=== PATIENT | male | born 1945 | race Caucasian/White ===

== ENCOUNTER 2022-10-24 22:43 | Inpatient (IN) | payer MEDICARE, OTHER, SELFPAY ==
--- NOTE | ~2022-10-24 | XR_ITS ---
EXAMINATION: XR abdomen NG/feed tube insert DATE: 10/25/2022 12:10 INDICATION: Orogastric tube placement. TECHNIQUE: A supine view of the abdomen was obtained. COMPARISON: None. FINDINGS: The lower abdomen is excluded. The nasogastric tube tip is in the stomach with proximal corrina e port in the distal esophagus. The endotracheal tube tip is 3.0 cm above the chidi. IMPRESSION: 1. Nasogastric tube tip in the stomach with proximal side port in the distal esophagus. Advancement 8 cm is recommended. Reviewed, dictated and finalized at location A. IMPRESSION: 1. Nasogastric tube tip in the stomach with proximal side port in the distal es ophagus. Advancement 8 cm is recommended.
--- NOTE | ~2022-10-24 | XR_ITS ---
Portable chest x-ray Comparison: 10/24/2022 Clinical History: Shortness of breath, fever Findings: There is probable discoid left basilar atelectasis. Right lung clear. Cardiomediastinal s ilhouette is stable. Left shoulder arthroplasty noted. Impression: Probable discoid left basilar atelectasis, versus possibly pneumonia. Correlate clinically. Reviewed, dictated and finalized at [facility]. Impression: Probable discoid left basilar atelectasis, versus possibly pneumonia. Correlate clinically.
--- NOTE | ~2022-10-24 | XR_ITS ---
EXAMINATION: XR chest port-a-cath/central, XR abdomen NG/feed tube rechec DATE: 10/25/2022 13:59 INDICATION: Central line placement and nasogastric tube placement. TECHNIQUE: 1. Frontal view of the chest was obtained. 2. Portable supine AP view of the abdomen was obtained. COMPARISON: CT dated 10/25/2022 FINDINGS: CHEST: Right internal jugular central venous catheter with distal tip at the superior cavoatrial junction. E ndotracheal tube tip 4.2 cm above the chidi. Increased opacities at the left lower lung zone with mo re dense retrocardiac consolidation. Right lung is clear. No pneumothorax or evident right pleural ef fusion. The cardiomediastinal silhouette is within normal limits for AP technique. Severe right gleno humeral osteoarthritis. Left total shoulder arthroplasty. ABDOMEN: Nasogastric tube tip in proximal side port in the body of the stomach. Several gas-filled loops of isela wel in the upper abdomen. Which could represent small bowel consistent with either obstruction or ile us. Some residual excreted contrast in the bilateral renal collecting systems from the prior contrast enhanced CT . IMPRESSION: 1. Lines and tubes in expected positions. 2. Opacities in the left lower lung zone with retrocardiac consolidation consistent with small left p leural effusion and associated atelectasis and/or pneumonia. 3. Other dilated gas-filled loops of small bowel in the left upper quadrant which could be related to bowel obstruction or ileus. Reviewed, dictated and finalized at location B. IMPRESSION: 1. Lines and tubes in expected positions. 2. Opacities in the left lower lung zone with retrocardiac consolidation consis tent with small left pleural effusion and associated atelectasis and/or pneumon ia. 3. Other dilated gas-filled loops of small bowel in the left upper quadrant whi ch could be related to bowel obstruction or ileus.
--- NOTE | ~2022-10-24 | CT_ITS ---
Clinical Indication: Tachycardia, shortness of breath CT Scan of the Chest with Contrast: Technique: Contiguous sections were acquired throughout the chest after intravenous administration of 100 cc of Omnipaque 350. Dose reduction technique was used on this scan by utilizing automated expos ure control and iterative reconstruction technique. The dose-length product (DLP) was 311.03 mGy-cm. Findings: There is no evidence of any significant mediastinal, hilar or axillary lymphadenopathy. There is no l arge central pulmonary embolus. Respiratory motion artifact limits evaluation for smaller, more perip heral pulmonary emboli. There is no evidence of aortic dissection or aneurysm. There are atherosclero tic calcifications of the aorta and coronary vessels. No pericardial effusion. Small bilateral pleural effusions are present, left greater than right. There is left basilar atelect atic change. Images through the upper abdomen reveal no abnormalities. Impression: No large central pulmonary embolus. Respiratory motion artifact limits evaluation for smaller, more p eripheral pulmonary emboli. Small bilateral pleural effusions, left greater than right, with left basilar atelectasis. Reviewed, dictated and finalized at [facility]. Impression: No large central pulmonary embolus. Respiratory motion artifact limits evaluati on for smaller, more peripheral pulmonary emboli. Small bilateral pleural effusions, left greater than right, with left basilar a telectasis.
--- NOTE | ~2022-10-24 | XR_ITS ---
EXAMINATION: XR chest ET placement DATE: 10/25/2022 12:10 INDICATION: Intubation. TECHNIQUE: A single frontal view of the chest was obtained. COMPARISON: Chest single view 10/25/2022, chest CT 10/25/2022 FINDINGS: There is a small left pleural effusion. There are airspace opacities at left lung base. No pneumothorax. The heart size is normal. The endotracheal tube tip is 3.3 cm above the chidi. The radha ogastric tube tip is in the stomach with proximal side port in the distal esophagus. There is a total left shoulder arthroplasty. IMPRESSION: 1. Small left pleural effusion. 2. Airspace opacities at left lung base, consistent with atelectasis versus pneumonia. 3. Nasogastric tube tip in the stomach with proximal side port in the distal esophagus. Advancement 8 cm is recommended. Reviewed, dictated and finalized at location A. IMPRESSION: 1. Small left pleural effusion. 2. Airspace opacities at left lung base, consistent with atelectasis versus pne umonia. 3. Nasogastric tube tip in the stomach with proximal side port in the distal es ophagus. Advancement 8 cm is recommended.
--- NOTE | ~2022-10-24 | CT_ITS ---
Clinical Indication: Sepsis CT Scan of the Chest, Abdomen, and Pelvis with Contrast: Technique: Contiguous sections were acquired throughout the chest, abdomen, and pelvis without IV con trast administration. Dose reduction technique was used on this scan by utilizing automated exposure control and iterative reconstruction technique. The dose-length product (DLP) was 678.52 mGy-cm. COMPARISON: 10/25/2022 at 606 exam Findings: Endotracheal tube and NG tube are in place. There is no evidence of any significant mediastinal, hilar or axillary lymphadenopathy. Atherosclerot ic calcifications of the aorta and coronary vessels are present. No pericardial effusion. Small left pleural effusion and minimal right pleural effusion is present. There is mild bibasilar at electatic change. The liver, spleen, pancreas, gallbladder, adrenals and kidneys are within normal li mits. There are atherosclerotic calcifications of the aorta. No lymphadenopathy. No bowel obstruction or bowel wall thickening. There is no evidence to suggest acute appendicitis. Urinary bladder is collapsed around a Lino catheter. No pelvic mass identified. No ascites. Impression: Small left pleural effusion and minimal right pleural effusion, mild bibasilar atelectatic change. No other significant findings. Reviewed, dictated and finalized at [facility]. Impression: Small left pleural effusion and minimal right pleural effusion, mild bibasilar atelectatic change. No other significant findings.
--- NOTE | ~2022-10-24 | CT_ITS ---
EXAMINATION: CTA brain carotid DATE: 10/25/2022 13:13 INDICATION: Slurred speech. Unresponsive. TECHNIQUE: Computed tomographic angiography (CTA) of the head was performed without and with 100 mL O mnipaque-350 intravenous contrast. CTA of the neck was performed with intravenous contrast. Automated exposure control and iterative reconstruction technique were employed. The dose-length product was 1 299.24 mGy-cm. Maximum intensity projection and volume rendered 3D-reconstructions were created by marisa mendez technologist on a separate workstation. COMPARISON: None. FINDINGS: HEAD CTA: There is no intracranial hemorrhage, acute infarction, or abnormal intracranial mass lesion . There are scattered areas of low attenuation in the cerebral white matter, which is within normal l imits for the patient's age. The ventricles are normal in size. The paranasal sinuses are clear. The orbits are normal. The mastoid air cells are normal. The vertebral arteries are codominant. There is no significant stenosis of basilar artery or the posterior cerebral arteries. There is no significant stenosis of the intracranial internal carotid arteries or anterior or middle cerebral arteries. The anterior communicating artery is normal. The posterior communicating arteries are normal. There is no aneurysm. NECK CTA: There are small pleural effusions. There are no pathologically enlarged lymph nodes. There is an endotracheal tube with tip in expected position. Partially visualized is an orogastric tube. Th ere is no significant stenosis of the vertebral arteries. There is plaque in the proximal internal ca rotid arteries. There is 0% stenosis of the proximal right internal carotid artery relative to normal distal artery lumen diameter (NASCET criteria). There is 0% stenosis of the proximal left internal c arotid artery relative to normal distal artery lumen diameter. There is severe cervical spondylosis. IMPRESSION: 1. Normal aging brain. 2. No aneurysm or significant intracranial arterial stenosis. 3. 0% stenosis of the proximal internal carotid arteries relative to normal distal artery lumen diame ters (NASCET criteria). 4. Small pleural effusions. Reviewed, dictated and finalized at location A. IMPRESSION: 1. Normal aging brain. 2. No aneurysm or significant intracranial arterial stenosis. 3. 0% stenosis of the proximal internal carotid arteries relative to normal dis sigifredo artery lumen diameters (NASCET criteria). 4. Small pleural effusions.
--- NOTE | ~2022-10-24 | XR_ITS ---
Portable chest x-ray Comparison: None Clinical History: Chest pain Findings: Linear left basilar scarring or atelectasis noted. Lungs are otherwise clear, without focal consolidation or pleural effusion. Cardiomediastinal silhouette is unremarkable. Degenerative matos e of the right shoulder noted. Left shoulder arthroplasty present. Impression: Linear left basilar scarring or atelectasis, otherwise clear lungs. Reviewed, dictated and finalized at location . Impression: Linear left basilar scarring or atelectasis, otherwise clear lungs.
[2022-10-24 22:43] VITALS: BP 101/56; PULSE 93; RESP 25; TEMP 36.4; O2SAT 98
--- NOTE | 2022-10-24 22:43 | ECG_ITS ---
Measurements Intervals [place] Rate: 106 P: [place]: 0 QRS: 72 QRSD: 117 T: 42 QT: 324 QTc: 432 Interpretive Statements SINUS TACHYCARDIA FREQUENT ATRIAL PREMATURE COMPLEXES INTRAVENTRICULAR CONDUCTION DELAY DELAYED PRECORDIAL R/S TRANSITION ST ELEVATION IN ANTERIOR LEADS CONSISTENT WITH INJURY, PERICARDITIS, OR EARLY REPOLARIZATION ABNORMAL ECG NO PREVIOUS ECG AVAILABLE FOR COMPARISON Electronically Signed On 10-25-2022 6:39:33 CDT by Mike Sy D.O.
--- NOTE | 2022-10-24 23:11 | ED.WEAKNESS ---
HPI - Weakness General Chief complaint: Weakness <Mariam Basilio MD - Last Filed: 10/26/22 13:05> Stated complaint: gen weak <Mariam Basilio MD - Last Filed: 10/26/22 13:05> Time Seen by Provider: 10/24/22 22:45 <Mariam Basilio MD - Last Filed: 10/26/22 13:05> History of Present Illness HPI Narrative: Patient is a 77-year-old male with a history of CAD status post stent, hypertension, hyperlipidemia presenting with body aches. Patient states that he had a heart attack last month and had a stent placed at [facility]. States that at that time he was started on new medications including atorvastatin, Jardiance, metoprolol, Brilinta. States that he had previously only been taking lisinopril. States that over the last few weeks he has been having worsening body aches. States that all of his muscles hurt especially in his thighs. States that he is also been feeling generally weak. States that he has been feeling a bit short of breath over the last few days. States that he had a brief episode of left-sided chest pain several days ago that has not recurred. States that he has been wearing a heart monitor for the last several weeks to evaluate for arrhythmias. He denies any lightheadedness, headaches, numbness or weakness, fevers, cough, abdominal pain, nausea or vomiting, diarrhea, dysuria, leg swelling. <Mariam Basilio MD - Last Filed: 10/26/22 13:05> Related Data Home medications: Home Medications Medication Instructions Recorded Confirmed aspirin 81 mg chewable tablet 10/24/22 atorvastatin 40 mg tablet mg 10/24/22 empagliflozin 10 mg tablet mg 10/24/22 (Jardiance) lisinopril 5 mg tablet mg 10/24/22 metoprolol tartrate 25 mg tablet mg 10/24/22 ticagrelor 90 mg tablet (Brilinta) mg 10/24/22 carboxymethylcellulose sodium 1 % 2 drp EACH EYE BID 10/25/22 10/25/22 eye liquid gel drops <Mariam Basilio MD - Last Filed: 10/26/22 13:05> Allergies/Adverse reactions: Allergies Allergy/AdvReac Type Severity Reaction Status Date / Time Penicillins Allergy Mild Unknown Verified 10/25/22 06:43 <Mariam Basilio MD - Last Filed: 10/26/22 13:05> Review of Systems Review of Systems: All systems reviewed & are unremarkable except as noted in HPI and below <Mariam Basilio MD - Last Filed: 10/26/22 13:05> PMFSH Past Medical History Medical History: Medical History Coronary artery disease Dyslipidemia <Mariam Basilio MD - Last Filed: 10/26/22 13:05> Surgical History Surgical History: Surgical History History of heart artery stent (09/14/22) History of left shoulder replacement <Mariam Basilio MD - Last Filed: 10/26/22 13:05> Family History Family History: Family History Other No significant family history <Mariam Basilio MD - Last Filed: 10/26/22 13:05> Social History Social History: Social History Social History: Code status: Full code Power of senior attorney for healthcare: Smoking packs per day: 1 Smoking cigarettes per day: 20.0 Years smoked: 35 Smoking pack-years: 35.00 Smoking status: Former smoker Alcohol intake: current Drinks per week: 14 Alcohol use details: 2 drinks daily Substance use: never Additional living arrangements comments: He lives with his of 30 years. They have no children. 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 EYES: P
[2022-10-24 23:17] LABS: Basophils Percent Auto 0.7 % (0.2-1.2); Hematocrit 31.7 % (42.0-52.0); Hemoglobin 10.8 g/dL (14.0-18.0); Immature Granulocyte Absolute 0.01 K/mm3 (0.00-0.031); Immature Granulocyte Percent A 0.2 % (0-0.5); Lymphocytes Absolute Auto 0.29 K/mm3 (0.9-3.2); Lymphocytes Percent Auto 6.5 % (18.3-44.2); Mean Corpuscular HGB Conc 34.1 g/dl (32-36); Mean Corpuscular Hemoglobin 32.4 pg (26-34); Mean Corpuscular Volume 95.2 fl (80-100); Mean Platelet Volume 10.2 fl (7.4-10.4); Monocytes Absolute Auto 0.6 K/mm3 (0.1-0.6); Monocytes Percent Auto 12.4 % (2.6-8.5); Neutrophils Absolute Auto 3.6 K/mm3 (1.3-6.7); Neutrophils Percent Auto 80.2 % (45.5-73.1); Platelet Count Result 166 k/mm3 (150-375); Red Blood Count 3.33 M/mm3 (4.6-6.20); Red Cell Distribution Width 14.6 % (11.5-14.5); White Blood Count 4.5 K/mm3 (4.5-10.0)
[2022-10-24] MEDS: SODIUM CHLORIDE 0.9% IV 1,000 ML 999 ML IV CONT (23:20)
[2022-10-24 23:25] LABS: Creatine Kinase 244 U/L (55-170); Magnesium 2.3 mg/dL (1.6-2.3)
[2022-10-24 23:26] LABS: Lactic Acid Reflex 5.5 mmol/L (0.7-2.0)
[2022-10-24 23:27] LABS: Alanine Aminotransferase 36 U/L (6-50); Albumin Level 2.7 g/dL (3.5-5.1); Alkaline Phosphatase 49 U/L (38-126); Anion Gap 11 mmol/L (8-16); Aspartate Amino Transferase 40 U/L (17-59); Bilirubin,Total 0.7 mg/dL (0.2-1.3); Blood Urea Nitrogen 44 mg/dL (9-20); Calcium 7.6 mg/dL (8.4-10.2); Carbon Dioxide 17 mmol/L (22-30); Chloride 92 mmol/L (98-107); Estimated CRCL calculation 41 ml/min; Estimated Glomerular Filt Rate 54; Glucose 108 mg/dL (65-110); Potassium 4.1 mmol/L (3.4-5.0); Sodium 120 mmol/L (137-145)
[2022-10-24 23:29] LABS: Large Platelets Present; Platelet Estimate Adequate (Adequate)
[2022-10-24 23:30] LABS: Acanthocytes 2+ (NORMAL); Anisocytosis 1+ (NORMAL); Schistocytes None Seen (NORMAL)
[2022-10-24 23:38] LABS: Appearance Urine Cloudy (Clear); Bacteria Urine None Seen /hpf; Bilirubin Urine Negative (Negative); Blood Urine 1+ (Negative); Color Urine Yellow (Yellow); Glucose Urine UA 3+ mg/dL (Negative); Ketones Urine Negative (Negative); Leukocyte Esterase Ur Negative LEU/UL (Negative); Need Manual Microscopic Reviewed; Nitrate Urine Negative (Negative); Protein Urine Negative (Negative); Specific Grav Ur 1.019 (1.001-1.035); Squamous Epithelial Cell Urine Few /hpf (Few); Urobilinogen Urine 0.2 mg/dL (<2.0); WBC Urine 0-5 /hpf; pH Urine 5.5 (5.0-9.0)
[2022-10-24 23:40] LABS: NT Pro B Type Natriuretic Pept 13700 pg/mL (19.9-100); Troponin I 0.064 ng/mL (0.000-0.034)
[2022-10-24 23:40] LABS: Add Urine Microscopic? YES
[2022-10-24 23:41] LABS: Creatinine Urine 55.9 mg/dL
[2022-10-24 23:43] LABS: Sodium Urine Random < 5 meq/L
[2022-10-24 23:51] LABS: INR 1.3; Prothrombin Time 17.1 Seconds (11.1-14.7)
[2022-10-25] VITALS (63 sets, daily range): BP systolic 61–138; BP diastolic 42–97; PULSE 68–180; RESP 15–42; TEMP 36.9–38.4; O2SAT 73–100
--- NOTE | 2022-10-25 | ECHO_ITS ---
Patient Info Name: Delvin Smith Age: 77 years : 1945 Gender: Male Ht: 68 in Wt: 148 lbs BSA: 1.80 m2 HR: 140 bpm BP: 70 / 43 mmHg Heart Rhythm: Tachycardia, Atrial Fibrillation Technical Quality: Fair Exam Date: 10/25/2022 2:44 PM Exam Location: [facility] Pulmonary Exam Room: ICU4 Patient Status: Outpatient Admit Date: 10/25/2022 Staff Ordering Physician: Lopez Pierce MD Rheumatologist: Tamika Chinchilla RDCS Attending Provider: Cari Guillaume DO Exam Type: CA echo doppler color flow Study Info Indications - SHOCK AFIB CAD HX/O TX S/P STENT Complete two-dimensional, color flow and Doppler transthoracic echocardiogram is performed. Summary 1. Technically difficult study with limited views. Accurate assessment of LV systolic function limited due to rapid tachyarrhythmia. 2. Left ventricular chamber dimension is normal. 3. Left ventricular systolic function is moderately reduced, estimated at 40-45%. 4. There is mild mitral valve regurgitation. 5. There is mild to moderate tricuspid valve regurgitation. 6. Mild pulmonary hypertension, estimated pulmonary arterial systolic pressure is 41 mmHg. Left Ventricle Technically difficult study with limited views. Accurate assessment of LV systolic function limited due to rapid tachyarrhythmia. Left ventricular chamber dimension is normal. Left ventricular systolic function is moderately reduced, estimated at 40-45%. There is mildly increased left ventricular wall thickness. The left ventricular diastolic function is indeterminate. Right Ventricle Right ventricular chamber dimension is normal. Right ventricular systolic function is normal. Left Atria Left atrial chamber dimension is normal. Right Atria Right atrial chamber dimension is mildly enlarged. Aortic Valve The aortic valve is trileaflet. There is mild aortic valve sclerosis. There is no aortic valve stenosis. There is no aortic valve regurgitation. Pulmonic Valve The pulmonic valve is not well visualized. Mitral Valve The mitral valve has thickened leaflets. There is mild mitral valve regurgitation. The mitral valve annulus is severely calcified. Tricuspid Valve The tricuspid valve leaflets are normal. There is mild to moderate tricuspid valve regurgitation. Mild pulmonary hypertension, estimated pulmonary arterial systolic pressure is 41 mmHg. Pericardium/Pleural The pericardium appears normal. There is small pericardial effusion. Left pleural effusion. Inferior Vena Cava Normal inferior vena cava with >50% collapse upon inspiration consistent with normal right atrial pressure, 5 mmHg. Aorta The aortic root size at the sinus of Valsalva is normal. There is mild aortic atherosclerosis. Left Ventricular Outflow Tract Name Value Normal LVOT 2D LVOT Diameter 2.1 cm LVOT Doppler LVOT Peak Gradient 5 mmHg LVOT Mean Gradient 3 mmHg LVOT VTI 15 cm LVOT VTI/AV VTI Ratio 0.8 LVOT Stroke Volume 54 ml LVOT CO 18.2 l/min LVOT CI 10.2 l/min/m2 Pulmonic Va
[2022-10-25] MEDS: LACTATED RINGERS 1,000 ML 999 ML IV CONT (00:15)
[2022-10-25 01:04] LABS: Influenza A QL RT-PCR Negative (Negative); Influenza B QL RT-PCR Negative (Negative); SARS-CoV-2 RNA PCR Negative (Negative)
[2022-10-25] MEDS: LACTATED RINGERS 1,000 ML 125 ML IV CONT (01:55)
[2022-10-25 02:10] LABS: Reflex Lactic Acid Yes or No Add Lactic
[2022-10-25 02:36] LABS: Troponin I 0.073 ng/mL (0.000-0.034)
[2022-10-25 03:14] LABS: Lactic Acid 4.4 mmol/L (0.7-2.0)
--- NOTE | 2022-10-25 04:18 | ECG_ITS ---
Measurements Intervals [place] Rate: 122 P: 42 [place]: 153 QRS: -34 QRSD: 114 T: 53 QT: 297 QTc: 425 Interpretive Statements SINUS TACHYCARDIA FREQUENT ATRIAL PREMATURE COMPLEXES INTRAVENTRICULAR CONDUCTION DELAY DELAYED PRECORDIAL R/S TRANSITION LOW QRS VOLTAGE IN LIMB LEADS ST ELEVATION IN ANTERIOR LEADS CONSISTENT WITH INJURY, PERICARDITIS, OR EARLY REPOLARIZATION ABNORMAL ECG COMPARED TO ECG 10/24/2022 22:49:35 NO SIGNIFICANT CHANGES Electronically Signed On 10-25-2022 6:58:05 CDT by Mike Sy D.O.
--- NOTE | 2022-10-25 04:22 | PM.IMHP ---
H&P: HPI History of Present Illness Date/Time: 10/25/22 04:22 Chief Complaint: Generalized weakness Narrative: 77-year-old male with a past medical history of recent [place] questionable cardiac arrest with cardiac stent placement the who presented to the ER with generalized weakness for 1 month. The the patient reports that the as symptoms are started with aching in his thighs calves and low back. As time progressed he also developed aching in is neck and shoulders. He has generalized weakness. He over the last week or so is also developed some he decreased appetite and occasional nausea. He reports that he went from working out 40 minutes a day 4 days a week to the right now not being able to get out of bed without maximum effort. He reports that he has some mildly more short of breath when he gets up and moves around but he states that it is because he has to put so much effort into movies his extremities. He has noticed some darker urine. He denies any dysuria. He denies any vomiting. He denies any cough or congestion. On exam patient is mildly tachypneic. He reports that he has felt a little bit more short of breath since arriving to the ER. He stops multiple times during conversation to clear his nose. He reports he has chronic nasal congestion. He denies any sore throat. He denies any recent ill contacts. He has not had any lower extremity swelling or abdominal swelling. He has been having normal bowel movements. In the ER and they did straight cath the patient after straight catheterization the patient did have bleeding from his meatus. He reports that he did have some pain in his left back and scapular area couple of days ago but he has so seated with laying in bed too much. He was in aching type pain it did not radiate to his shoulder. He reports that he never had any chest pain when he had his cardiac event. He stated that his cardiac event happened when he was working out at the recreational center and lifting weights in the next thing he knew he was at [facility]. He states that a bystander had witnessed him collapse and had administered CPR. He does not know if he was intubated or what other interventions he had during his cardiac event. He states that he only had 1 stent placed. His heart attack happen on the 11 of September anion stent placed on the . Review of Systems Review of Systems: 12 systems were reviewed with pertinent positives and negatives per HPI. Except as documented in the HPI, all other systems were reviewed and are negative. [facility] Past Medical History Medical History (Updated 10/25/22 @ 06:05 by Cari Guillaume DO) Coronary artery disease Dyslipidemia Surgical History Surgical History (Updated 10/25/22 @ 05:50 by Cari Guillaume DO) History of heart artery stent (09/14/22) History of left shoulder replacement Family History Family History (Updated 10/25/22 @ 05:54 by Cari Guillaume DO) Other No significant family history Social History Social History (Updated 10/25/22 @ 05:53 by Cari Guillaume DO) Social History: Code status: Full code Power of commonwealth attorney for healthcare: Smoking packs per day: 1 Smoking cigarettes per day: 20.0 Years smoked: 35 Smoking pack-years: 35.00 Smoking status: Former smoker Alcohol intake: current Drinks per week: 14 Alcohol use details: 2 drinks daily Substance use: never Additional living arrangements comments: He lives with his of 30 years. They have no children. 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
[2022-10-25] MEDS: METOPROLOL TARTRATE INJ 5 MG/5 ML VIAL IV PUSH (04:27)
[2022-10-25 04:29] LABS: Basophils Percent Auto 0.9 % (0.2-1.2); Hematocrit 32.2 % (42.0-52.0); Hemoglobin 11.1 g/dL (14.0-18.0); Immature Granulocyte Absolute 0.01 K/mm3 (0.00-0.031); Immature Granulocyte Percent A 0.5 % (0-0.5); Lymphocytes Percent Auto 18.2 % (18.3-44.2); Mean Corpuscular HGB Conc 34.5 g/dl (32-36); Mean Corpuscular Hemoglobin 32.6 pg (26-34); Mean Corpuscular Volume 94.4 fl (80-100); Mean Platelet Volume 10.3 fl (7.4-10.4); Monocytes Absolute Auto 0.2 K/mm3 (0.1-0.6); Monocytes Percent Auto 8.2 % (2.6-8.5); Neutrophils Absolute Auto 1.6 K/mm3 (1.3-6.7); Neutrophils Percent Auto 72.2 % (45.5-73.1); Platelet Count Result 156 k/mm3 (150-375); Red Blood Count 3.41 M/mm3 (4.6-6.20); Red Cell Distribution Width 14.6 % (11.5-14.5); White Blood Count 2.2 K/mm3 (4.5-10.0)
[2022-10-25 04:41] LABS: Anion Gap 9 mmol/L (8-16); Blood Urea Nitrogen 48 mg/dL (9-20); Calcium 7.7 mg/dL (8.4-10.2); Carbon Dioxide 19 mmol/L (22-30); Chloride 95 mmol/L (98-107); Estimated CRCL calculation 59 ml/min; Estimated Glomerular Filt Rate > 60; Glucose 104 mg/dL (65-110); Potassium 3.8 mmol/L (3.4-5.0); Sodium 123 mmol/L (137-145)
[2022-10-25 05:48] LABS: Troponin I 0.073 ng/mL (0.000-0.034)
--- NOTE | 2022-10-25 06:04 | PC.NURSE ---
Pt in CT at this time
[2022-10-25 06:05] LABS: Lactic Acid Reflex 3.8 mmol/L (0.7-2.0)
[2022-10-25 06:11] LABS: Sodium 123 mmol/L (137-145)
[2022-10-25 09:58] LABS: Sodium 124 mmol/L (137-145)
[2022-10-25] MEDS: TICAGRELOR 90 MG TABLET PO (10:03)
[2022-10-25] MEDS: METOPROLOL TARTRATE 25 MG TABLET PO (10:03)
--- NOTE | 2022-10-25 10:30 | PC.NURSE ---
Pt noted to have increase in garbled speech. Nurse was able to carry on conversation earlier but now is unable to understand pt. Pt in aftib with RVR on monitor.
--- NOTE | 2022-10-25 10:36 | ECG_ITS ---
Measurements Intervals [place] Rate: 166 P: [place]: 0 QRS: 90 QRSD: 116 T: 24 QT: 263 QTc: 438 Interpretive Statements ATRIAL FIBRILLATION WITH RAPID VENTRICULAR RESPONSE LOW QRS VOLTAGE IN LIMB LEADS INTRAVENTRICULAR CONDUCTION DELAY DELAYED PRECORDIAL R/S TRANSITION ST ELEVATION IN ANTERIOR LEADS CONSISTENT WITH INJURY, PERICARDITIS, OR EARLY REPOLARIZATION BASELINE WANDER- II, III, AVR, AVL, AVF, V6 ABNORMAL ECG COMPARED TO ECG 10/25/2022 04:20:12 ATRIAL FIBRILLATION NOW PRESENT Electronically Signed On 10-25-2022 11:28:23 CDT by Mike Sy D.O.
--- NOTE | 2022-10-25 10:50 | PC.NURSE ---
This RN noticed pt was in afib on monitor with rate in the 160's. Also has increase in garbled speech from arrival. Call placed to Dr. Mann.
[2022-10-25 11:05] LABS: Glucose Point of Care 56 mg/dl (65-105)
[2022-10-25] MEDS: DEXTROSE 50% 25 GM/50 ML SYRINGE (11:05)
[2022-10-25 11:28] LABS: Glucose Point of Care 148 mg/dl (65-105)
[2022-10-25] MEDS: AMIODARONE 150 MG/D5W 100 ML 150 MG/100 ML BAG 600 MG IV CONT ×2 (11:40→15:19)
--- NOTE | 2022-10-25 11:45 | PC.NURSE ---
Dr. Mann at bedside to assess pt. Pt able to have a full conversation with this RN at 1105, while very garbled, and a good hospice superintendent B hands. At 1130 pt leaning more to left side and unable to hold a conversation. Pt in afib RVR in the 150s with pressures in the 70s. Pt unable to hospice superintendent hands at this point now also.
--- NOTE | 2022-10-25 11:55 | PC.NURSE ---
Dr. Eubanks at bedside to intubate patient with a 7.5 oett. Pt premedicated with 70mg ramin and 20mg etomidate and RT bagging to preoxygenate pt. Tube placed at 25cm at lip and verified with bedside CXR, color change, and bilateral chest rise. NG inserted in L nare at this time and verified with xray.
[2022-10-25] MEDS: AMIODARONE 360 MG/D5W 200 ML 360 MG/200 ML BAG 33.33 MG IV CONT (12:05)
[2022-10-25] MEDS: NOREPINEPHRINE 8 MG/D5W 250 ML 8 MG/250 ML BAG 18.75 MG IV CONT (12:07)
--- NOTE | 2022-10-25 12:17 | PC.NURSE ---
1 amp bicarb administered under verbal order stated by Bilingual Research Interviewer.
[2022-10-25 12:34] LABS: Alveolar/Arterial O2 Gradient 289.6 mmHg; Base Excess ABG -14.4 mEq/l (+/-2.0); Carboxyhemoglobin 0.5 % THb (0-2.0); Fractional Inspired Oxygen 60 %; HCO3 ABG 14.5 mEq/l (22.0-26.0); Methemoglobin ABG 0.4 %THb (0-1.5); Modified Allen's Test Pass; Oxygen Content ABG 12.5 %vol (16.0-22.0); Oxygen Saturation ABG 92.8 % (95.0-100.0); Oxyhemoglobin 90.6 % THb (90.0-100.0); PCO2 ABG 47.3 mmHg (35.0-45.0); PO2 ABG 86.2 mmHg (80.0-100.0); PO2 FiO2 Ratio Arterial Blood 1.44 %; Reduced Hemoglobin 8.5 %THb (0-5.0); Site Drawn LEFT FEMORAL; Total Hemoglobin 9.7 g/dL (12.0-18.0); pH ABG 7.104 (7.350-7.450)
[2022-10-25 12:35] LABS: Arterial Blood Gas PEEP 5 cmH2O; Arterial Blood Gas Tidal Volume 400 ml; Arterial Blood Gas Vent Mode CMV; Arterial Blood Gas Ventilator rate 20 /MIN; Device VENTILATOR
--- NOTE | 2022-10-25 12:40 | PC.NURSE ---
4mg versed administered to pt before CT ordered by the supervisor specialty plant. RT, RN, and watson taking pt to CT and straight to ICU.
[2022-10-25 12:43] LABS: Estimated CRCL calculation 41 ml/min; Estimated Glomerular Filt Rate 54
--- NOTE | 2022-10-25 12:46 | WPDCNINT ---
Assessment and Plan Assessment and plan (1) Acute respiratory failure: Code(s): J96.00 - Acute respiratory failure, unspecified whether with hypoxia or hypercapnia Status: Acute Assessment and Plan: Acute Respiratory failure secondary to altered mental status, AFib with RVR, sepsis, possible pneumonia Patient is now being intubated and placed on mechanical ventilation Chest x-ray reviewed -and was NG tube by 10 cm Ventilator settings reviewed ABG ABG has been ordered and is pending. 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 CK level 244 Statin has been discontinued for now monitor CK level (3) Sepsis: Code(s): A41.9 - Sepsis, unspecified organism Status: Acute Assessment and Plan: Patient met criteria for sepsis presented with leukopenia and was hypotensive with elevated lactic acid level Chest x-ray appears to have a pneumonia Patient is currently on Rocephin and doxycycline Blood cultures have been sent and are pending Check urine Legionella and pneumococcal antigens Check procalcitonin level Check CT chest abdomen pelvis for better evaluation (4) Shock: Code(s): R57.9 - Shock, unspecified Status: Acute Assessment and Plan: Sepsis versus cardiogenic Patient is being given on the 1 L fluid bolus He does have elevated BNP but chest x-ray does not show any significant pulmonary edema Continue cautious amount of IV fluids Levophed has been started Add vasopressin Add stress dose steroids Will place central venous catheter was patient comes to ICU Check echocardiogram (5) Leukopenia: Qualifiers: Leukopenia type: lymphocytopenia Qualified Code(s): D72.810 - Lymphocytopenia Code(s): D72.819 - Decreased white blood cell count, unspecified Status: Acute Assessment and Plan: Could be secondary to sepsis see above (6) Hyponatremia: Code(s): E87.1 - Hypo-osmolality and hyponatremia Status: Acute Assessment and Plan: Likely secondary to dehydration Patient is giving volume resuscitated due to shock Monitor sodium level (7) Atrial fibrillation with RVR: Code(s): I48.91 - Unspecified atrial fibrillation Status: Acute Assessment and Plan: Patient was given amnio bolus and started amiodarone infusion in the ER Patient has now converted to sinus rhythm Continue amiodarone infusion Start heparin infusion if CT scan of the head is negative (8) Coronary artery disease: Code(s): I25.10 - Atherosclerotic heart disease of [place] coronary artery without angina pectoris Status: Acute Assessment and Plan: Continue aspirin and Brilinta Hold statin due to myopathy Hold beta-mirian and [place]-inhibitor due to shock Check echocardiogram as above (9) Altered mental status: Code(s): R41.82 - Altered mental status, unspecified Status: Acute Assessment and Plan: Patient developed altered mental status in the ED when he developed AFib with RVR. This could be secondary to hypotension but patient also has AFib with RVR and is at risk of CVA. Check CTA head and neck Unable to obtain MRI on a vented patient at [facility] Check echocardiogram Unfortunately patient is now sedated and chemically paralyzed and exam is unreliable Plan DVT prophylaxis -heparin drip Stress ulcer prophylaxis -PPI Nutrition -NPO Code Status -ED physician's spoke to patient's and patient does not desire CPR in the event of cardiac arrest. Code status has been modified in the chart Case discussed with internal medicine and ER physician Total Critical Care Time - 90 minutes Due to a high probability of clinically significant, life threatening deterioration, the patient required my highest level of preparedness to intervene emergent
--- NOTE | 2022-10-25 13:00 | PC.NURSE ---
This patient, Delvin Smith, was admitted to Intensive Care Unit-4. Patient/family oriented to hospital policies and general routines including ID bracelet, bed and alarms, visiting hours, pain management, procedures, bathroom and other care routines, personal items, smoking policy, room service/diet, and visiting hours. Information on how to activate the Rapid Response Team has been discussed. Patient/Family are encouraged to report perceived risks to care and to ask questions if they do not understand what they are told or what they should do.
--- NOTE | 2022-10-25 13:03 | PM.IMPN ---
Progress Note: A&P Assessment and Plan (1) AMS (altered mental status): Code(s): R41.82 - Altered mental status, unspecified Status: Acute (2) Altered mental status: Code(s): R41.82 - Altered mental status, unspecified Status: Acute (3) Acute respiratory failure: Code(s): J96.00 - Acute respiratory failure, unspecified whether with hypoxia or hypercapnia Status: Acute (4) Sepsis: Code(s): A41.9 - Sepsis, unspecified organism Status: Acute (5) Coronary artery disease: Code(s): I25.10 - Atherosclerotic heart disease of [place] coronary artery without angina pectoris Status: Acute (6) Atrial fibrillation with RVR: Code(s): I48.91 - Unspecified atrial fibrillation Status: Acute (7) Hyponatremia: Code(s): E87.1 - Hypo-osmolality and hyponatremia Status: Acute (8) Shock: Code(s): R57.9 - Shock, unspecified Status: Acute (9) Generalized weakness: Code(s): R53.1 - Weakness Status: Acute (10) Leukopenia: Qualifiers: Leukopenia type: lymphocytopenia Qualified Code(s): D72.810 - Lymphocytopenia Code(s): D72.819 - Decreased white blood cell count, unspecified Status: Acute Plan Called the ED for elevated heart rate. Upon arrival, patient's blood pressure is 70 or 40. Fluid boluses ordered. Amiodarone was ordered. Not able to have head CT due to unstable nature of the patient. ED physician was notified of patient's critical condition. Spoke to the stone hand personally. Patient's condition deteriorated. Become unresponsive with agonal breathing. Patient given bag valve mask. Did not lose heart rate. Patient was intubated by the ED physician. Technical Project Lead at bedside as well. Airway secured. CTA head/neck ordered. Pressors if needed. He did concert to NSR. IV abx. Plan to move to ICU for further care. 55 minutes spent on critical care time Subjective Date/time seen: 10/25/22 13:03 Interval history: 76yo male with hx of CAD here for bodt aches. Called the ER because of elevated heart rate. Patient had garbled speech and was unable to provide history could follow commands initially. Review of Systems Review of Systems: ROS unobtainable: Yes unobtainable due to medical condition Exam Narrative: AF 98.5 70/43 160 25 Gen - elderly male sitting up in gurney in mild distress Chest - inspiratory crackles in the flanks. tachypneic CV - tachycardic irregular Abd - Soft, protuberant, nontender Ext - No pedal edema Neuro - alert, garbled speech. dorsi and plantar flexion 5/5. hair blender 5/5. pupils reactive Psych - anxios Skin - mildly diaphoretic Objective Data Vital Signs Vital Signs: Vital Signs - 24 hr 10/24/22 22:43 10/25/22 00:00 10/25/22 00:39 Temperature 97.6 F Pulse Rate 93 101 H 101 H Respiratory Rate 25 H 22 H 23 H Blood Pressure 101/56 L 99/64 L 106/65 Pulse Oximetry 98 100 100 Oxygen Delivery Room Air Fraction of Inspired Oxygen 10/25/22 01:32 10/25/22 02:45 10/25/22 03:02 Temperature Pulse Rate 109 H 105 H Respiratory Rate 26 H 25 H Blood Pressure 127/73 131/83 Pulse Oximetry 100 98 Oxygen Delivery Fraction of Inspired Oxygen 10/25/22 03:46 10/25/22 04:03 10/25/22 04:27 Temperature Pulse Rate 118 H 122 H 137 H Respiratory Rate Blood Pressure Pulse Oximetry Oxygen Delivery Fraction of Inspired Oxygen 10/25/22 04:30 10/25/22 04:33 10/25/22 04:58 Temperature 98.5 F Pulse Rate 115 H 107 H Respiratory Rate 23 H Blood Pressure 135/80 133/78 Pulse Oximetry 100 Oxygen Delivery Fraction of Inspired Oxygen 10/25/22 05:03 10/25/22 05:34 10/25/22 05:49 Temperature Pulse Rate 126 H 133 H 146 H Respiratory Rate 25 H 27 H 27 H Blood Pressure 138/83 104/75 Pulse Oximetry 100 100 98 Oxygen Delivery Fraction of Inspired Oxygen 10/25/22 06:13 10/25/22 06:57 01
--- NOTE | 2022-10-25 13:13 | PCPTNOTE ---
Pt currently on mechanical ventilator. Pt is not medically stable to participate in skilled therapy at this time. Please re-order when pt is appropriate.
[2022-10-25] MEDS: NOREPINEPHRINE 8 MG/D5W 250 ML 8 MG/250 ML BAG 10 MG (13:26)
[2022-10-25] MEDS: SODIUM BICARBONATE 8.4% 50 MEQ/50 ML SYRINGE IV PUSH (13:57)
[2022-10-25] MEDS: LACTATED RINGERS 1,000 ML 75 ML IV CONT (13:58)
--- NOTE | 2022-10-25 14:03 | P.PCNBED_ITS ---
Procedures Central Line Placement Right IJ: Central Line Date: 10/25/22 Central Line Time: 13:15 Performed Emergently - Given emergent patient condition, temporal constraints may have precluded informed consent.: Yes Consent: Patient shock and on high dose vasopressors. No family available. Procedure done emergently as medical necessity Time Out Performed: Yes Patient Position: trendelenburg Patient placed on monitor/pulse ox: Yes Provider Prep: mask, sterile gown, sterile gloves, Max. sterile barrier precautions, cap and hand hygiene with conventional soap/water or alcohol based hand rub Central line prep: Povidone-Iodine 1% Sterile US Technique with sterile gel/sterile probe covers: Yes Central line lumen inserted: triple Length (cm): 16 Depth of Insertion (cm): 16 Post Procedure: sutured in place, good blood return, all ports aspirated, flushed, capped, transparent dressing and aseptic technique maintained throughou t procedure Post procedure x-ray: tip of catheter in good position and no pneumothorax seen Patient tolerated procedure: well Complications: none
[2022-10-25] MEDS: SODIUM CHLORIDE 0.9% IV 1,000 ML 999 ML IV CONT (14:15)
[2022-10-25] MEDS: HYDROCORTISONE SODIUM SUCCINATE 100 MG/2 ML VIAL IV PUSH (14:16)
[2022-10-25] MEDS: ASPIRIN 325 MG TABLET FEED TUBE (14:16)
[2022-10-25] MEDS: PANTOPRAZOLE SODIUM IV 40 MG VIAL IV PUSH (14:16)
[2022-10-25] MEDS: VASOPRESSIN INJ 100 UNITS in DEXTROSE 5% 95 ML IV CONT (14:18)
[2022-10-25] MEDS: DOXYCYCLINE 100 MG/NS 100 ML 100 MG/100 ML BAG IVPB (14:27)
[2022-10-25] MEDS: CENTRAL LINE FLUSH 10 ML IV PUSH (14:31)
[2022-10-25 14:47] LABS: Hematocrit 25.1 % (42.0-52.0); Hemoglobin 9.1 g/dL (14.0-18.0); Immature Granulocyte Absolute 0.01 K/mm3 (0.00-0.031); Immature Granulocyte Percent A 0.4 % (0-0.5); Lymphocytes Absolute Auto 0.36 K/mm3 (0.9-3.2); Lymphocytes Percent Auto 14.4 % (18.3-44.2); Mean Corpuscular HGB Conc 36.3 g/dl (32-36); Mean Corpuscular Hemoglobin 32.7 pg (26-34); Mean Corpuscular Volume 90.3 fl (80-100); Mean Platelet Volume 10.3 fl (7.4-10.4); Monocytes Absolute Auto 0.2 K/mm3 (0.1-0.6); Neutrophils Absolute Auto 1.9 K/mm3 (1.3-6.7); Neutrophils Percent Auto 77.2 % (45.5-73.1); Platelet Count Result 154 k/mm3 (150-375); Red Blood Count 2.78 M/mm3 (4.6-6.20); Red Cell Distribution Width 14.3 % (11.5-14.5); White Blood Count 2.5 K/mm3 (4.5-10.0)
[2022-10-25 14:58] LABS: INR 1.2; Prothrombin Time 16.1 Seconds (11.1-14.7)
[2022-10-25 14:59] LABS: Anion Gap 4 mmol/L (8-16); Blood Urea Nitrogen 68 mg/dL (9-20); Calcium 7.2 mg/dL (8.4-10.2); Carbon Dioxide 28 mmol/L (22-30); Chloride 93 mmol/L (98-107); Estimated CRCL calculation 34 ml/min; Estimated Glomerular Filt Rate 42; Glucose 87 mg/dL (65-110); Potassium 3.3 mmol/L (3.4-5.0); Sodium 125 mmol/L (137-145)
[2022-10-25 15:10] LABS: Acanthocytes 2+ (NORMAL); Anisocytosis 1+ (NORMAL); Platelet Estimate Adequate (Adequate); Schistocytes None Seen (NORMAL)
--- NOTE | 2022-10-25 15:10 | WPDNEURCNPN ---
Assessment and Plan Assessment and plan (1) Septic shock: Code(s): A41.9 - Sepsis, unspecified organism; R65.21 - Severe sepsis with septic shock Status: Acute (2) Respiratory failure: Code(s): J96.90 - Respiratory failure, unspecified, unspecified whether with hypoxia or hypercapnia Status: Acute (3) Atrial fibrillation with RVR: Code(s): I48.91 - Unspecified atrial fibrillation Status: Acute Plan 1. Change in the mental status 2. Acute respiratory failure 3. Underlying sepsis 4. Atrial fibrillation 5. Metabolic encephalopathy 6. Head neck CTA is completely negative for any intracranial abnormalities. Most likely his problem is related to generalize etiology Consult date: 10/28/22 HPI: Delvin Smith is a 77 year old maleAdmitted to the hospital through the emergency room. Patient has history of coronary artery disease status post stent, hypertension, hyperlipidemia, he presented with generalized body aches and reported that he has had heart attack last month and had a stent placed at [facility] at that time he was started on new medication including atorvastatin, jardiance, metoprolol, and Brilinta though previously was only taking lisinopril. He has been experiencing worsening body aches over the last few weeks particularly in his thighs and feeling generally weak in addition to being short of breath also he complained that he had a brief episode of left-sided chest pain several days ago he has been wearing a heart murmur for the last several weeks to evaluate for arrhythmias he gave number history of no other problem. Medications included as mentioned above atorvastatin, aspirin 81 mg daily, lisinopril, cynthia EA ends, metoprolol, and Brilinta, in the past she has undergone stent placement on September 14, 2022 he has history of 35 years smoked his smoking pack years 35 but former smoker and currently alcohol intake her 14 drinks per week his initial evaluation in the emergency room included a CBC which revealed WBC is only 2.2, lactic acid was 5.5 CPK 244 UA with glycosuria and screen for influenza A influenza B and covid were negative, on the floor patient has been started on antibiotic for pneumonia because of the leukopenia tachycardia and history of fever at home, x-ray chest as documented opacification of the left lower lung zone is retrocardiac consolidation consistent small left pleural effusion and associated pneumonia, head neck CTA has been done which revealed no aneurysm or intracranial arterial stenosis, at present patient is being treated for acute respiratory failure with generalized weakness sepsis and has been continued on aspirin and Brilinta for his underlying coronary artery disease PMFSH Past Medical History Medical History Coronary artery disease Dyslipidemia Surgical History Surgical History History of heart artery stent (09/14/22) History of left shoulder replacement Family History Family History Other No significant family history Social History Social History Social History: Code status: Full code Power of assistant county attorney for healthcare: Smoking packs per day: 1 Smoking cigarettes per day: 20.0 Years smoked: 35 Smoking pack-years: 35.00 Smoking status: Former smoker Alcohol intake: current Drinks per week: 14 Alcohol use details: 2 drinks daily Substance use: never Additional living arrangements comments: He lives with his of 30 years. They have no children. 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
[2022-10-25] MEDS: POTASSIUM CHLORIDE 20 MEQ PACKET (FOR LIQUID) 40 MEQ FEED TUBE (15:24)
[2022-10-25] MEDS: METOPROLOL TARTRATE INJ 5 MG/5 ML VIAL 2.5 MG IV PUSH (15:24)
[2022-10-25] MEDS: SODIUM CHLORIDE 0.45% 1,000 ML 100 ML IV CONT (15:39)
[2022-10-25 15:53] LABS: Alveolar/Arterial O2 Gradient 292.1 mmHg; Base Excess ABG -7.3 mEq/l (+/-2.0); Carboxyhemoglobin 0.2 % THb (0-2.0); Fractional Inspired Oxygen 60 %; HCO3 ABG 17.9 mEq/l (22.0-26.0); Methemoglobin ABG 0.3 %THb (0-1.5); Oxygen Content ABG 13.4 %vol (16.0-22.0); Oxyhemoglobin 95.3 % THb (90.0-100.0); PCO2 ABG 34.8 mmHg (35.0-45.0); PO2 ABG 97.4 mmHg (80.0-100.0); PO2 FiO2 Ratio Arterial Blood 1.62 %; Reduced Hemoglobin 4.2 %THb (0-5.0); Total Hemoglobin 9.9 g/dL (12.0-18.0); pH ABG 7.328 (7.350-7.450)
[2022-10-25 15:54] LABS: Device VENTILATOR; Site Drawn RIGHT BRACHIAL
[2022-10-25 15:55] LABS: Arterial Blood Gas PEEP 5 cmH2O; Arterial Blood Gas Tidal Volume 450 ml; Arterial Blood Gas Vent Mode CMV; Arterial Blood Gas Ventilator rate 24 /MIN
--- NOTE | 2022-10-25 16:15 | PM.CNCAR ---
Assessment and Plan Assessment and plan (1) Shock: Code(s): R57.9 - Shock, unspecified Status: Acute Assessment and Plan: Patient on high-dose norepinephrine and vasopressin. Precise etiology remains unclear. He meets sepsis criteria. He remains on IV antibiotics with ceftriaxone and doxycycline. Cultures pending. EF very difficult to assess by a echocardiogram due to rapid ventricular response in AFib although probably moderately reduced EF estimated around 40%, small pericardial effusion. Continue pressor support, IV hydration with mechanical ventilatory support. Patient's degree of shock is not primarily secondary to his AFib with RVR particularly in light of altered mental status, acute respiratory failure and febrile illness. Although he is COVID and influenza negative I recommend sending for RSV and human metapneumovirus as well. Patient presenting symptoms concerning for generalized viral symptoms. There is a question with regards to statin induced myopathy this would have little bearing given low CK level on patient's overall clinical presentation in critical life-threatening illness. Patient's troponin is very mildly elevated and flat and not consistent with acute coronary syndrome particularly given the severity of his presentation. While there could be a cardiogenic contribution to shock I have greater suspicion for sepsis given clinical features. Patient remains critically ill with poor prognosis. He has a modified code most recently with family desiring DNR. I spent 73 minutes in the care of this unfortunate in critically ill patient including at bedside, discussion with colleagues, chart review, medical decision-making, and documentation. (2) Atrial fibrillation with RVR: Code(s): I48.91 - Unspecified atrial fibrillation Status: Acute Assessment and Plan: Patient remains in AFib heart rate better controlled with IV amiodarone and low-dose IV metoprolol. Continue with p.r.n. low-dose IV metoprolol as needed. Continue IV amiodarone infusion. Heparin infusion ordered. Monitor for bleeding follow H&H very closely. Aspirin and Brilinta must be continued given recent report of acute myocardial infarction and stent implantation. Aspirin 81 mg daily appropriate. Patient at risk for bleeding and embolic stroke. No prior known history of atrial fibrillation per available records. (3) Sepsis: Code(s): A41.9 - Sepsis, unspecified organism Status: Acute Assessment and Plan: As above. Continue supportive therapy with IV fluids as appropriate, IV antibiotics, DVT prophylaxis. Cultures pending. As above, recommend evaluation for RSV and human metapneumovirus. (4) Acute respiratory failure: Qualifiers: Respiratory failure complication: hypoxia Qualified Code(s): J96.01 - Acute respiratory failure with hypoxia Code(s): J96.00 - Acute respiratory failure, unspecified whether with hypoxia or hypercapnia Status: Acute Assessment and Plan: Despite significantly elevated proBNP patient is not appear to be clinically in decompensated heart failure. Would not recommend diuresis given acute kidney injury and hypotension requiring multiple pressors. Patient remains intubated without sedation fortunately. Will defer further management to Critical Care. No indication for diuretic therapy at this time. Continue to monitor volume status. (5) Coronary artery disease: Qualifiers: Coronary Disease-Associated Artery/Lesion type: [place] artery [place] vs. transplanted heart: [place] heart Associated angina: without angina Qualified Code(s): I25.10 - Atherosclerotic heart disease of [place] coronary artery without angina pectoris Code(s): I25.10 - Atherosclerotic heart disease of [place] coronary artery without angina pectoris Status: Acute Assessment and Plan: Reported recent myocardial infarction and stent implantation August 2022 on
--- NOTE | 2022-10-25 16:40 | P.CONNP_ITS ---
Assessment and Plan Assessment and plan (1) Acute kidney injury: Code(s): N17.9 - Acute kidney failure, unspecified Status: Acute Assessment and Plan: * normal creatinine a month ago * suspect ATN from hemodynamic instability, septic shock, AFib with RVR, and hypoxia * check renal ultrasound, urine studies, and CPK * continue efforts to optimize hemodynamics * follow repeat labs and UOP (2) Septic shock: Code(s): A41.9 - Sepsis, unspecified organism; R65.21 - Severe sepsis with septic shock Status: Acute Assessment and Plan: * as evidenced by low WBC, hypotension, and lactic acidosis * pneumonia noted by CXR * follow culture data * on empiric antibiotics * follow repeat imaging * pressor support as needed * continue supportive therapy (3) Hyponatremia: Code(s): E87.1 - Hypo-osmolality and hyponatremia Status: Acute Assessment and Plan: * acute * on hospitalization a month ago, admitted with a sodium of 129 and discharged with a sodium at 136 * suspect due to volume depletion/prerenal factors * improvement noted with IVF hydration * follow trend of repeat sodiums and avoid overcorrection (4) Acute respiratory failure: Qualifiers: Respiratory failure complication: hypoxia Qualified Code(s): J96.01 - Acute respiratory failure with hypoxia Code(s): J96.00 - Acute respiratory failure, unspecified whether with hypoxia or hypercapnia Status: Acute Assessment and Plan: * due to a combination of altered mental status, AFib with RVR, sepsis, possible pneumonia * on ventilator support * weaning when more stable (5) Generalized weakness: Code(s): R53.1 - Weakness Status: Acute Assessment and Plan: * thought to have statin induced myopathy * CK level 244 * statin has been discontinued for now * monitor CK level (6) Atrial fibrillation with RVR: Code(s): I48.91 - Unspecified atrial fibrillation Status: Acute Assessment and Plan: * on amiodarone gtt * anticoagulation pending results of CT scan (7) Coronary artery disease: Qualifiers: Associated angina: without angina Coronary Disease-Associated Artery/Lesion type: [place] artery [place] vs. transplanted heart: [place] heart Qualified Code(s): I25.10 - Atherosclerotic heart disease of [place] coronary artery without angina pectoris Code(s): I25.10 - Atherosclerotic heart disease of [place] coronary artery without angina pectoris Status: Acute Assessment and Plan: * continue aspirin and Brilinta * hold statin due to myopathy * hold beta-mirian and [place]-inhibitor due to shock * repeat echo > 25 minutes was spent in review the patient's electronic medical record, previ ous records from his hospitalization at [facility], as well as discussion with the physician/nurses involved in his care as the patient. I will continue to follow patient with you while he remains hospitalized make further conditions during his hospital course Thank you for allowing me to participate in care this patient. History of Present Illness Reason for Consult Consult date: 10/25/22 Reason for consult: hyponatremia Chief Complaint Chief complaint: Hyponatremia History of Present Illness Narrative: All the information that I have obtained is from review of the electronic medical record as well as discussion with physicians and /nurses involved in the patient's care along with what I was informed by the ER physi
--- NOTE | 2022-10-25 16:40 | PM.CNNEP ---
Assessment and Plan Assessment and plan (1) Acute kidney injury: Code(s): N17.9 - Acute kidney failure, unspecified Status: Acute Assessment and Plan: normal creatinine a month ago suspect ATN from hemodynamic instability, septic shock, AFib with RVR, and hypoxia check renal ultrasound, urine studies, and CPK continue efforts to optimize hemodynamics follow repeat labs and UOP (2) Septic shock: Code(s): A41.9 - Sepsis, unspecified organism; R65.21 - Severe sepsis with septic shock Status: Acute Assessment and Plan: as evidenced by low WBC, hypotension, and lactic acidosis pneumonia noted by CXR follow culture data on empiric antibiotics follow repeat imaging pressor support as needed continue supportive therapy (3) Hyponatremia: Code(s): E87.1 - Hypo-osmolality and hyponatremia Status: Acute Assessment and Plan: acute on hospitalization a month ago, admitted with a sodium of 129 and discharged with a sodium at 136 suspect due to volume depletion/prerenal factors improvement noted with IVF hydration follow trend of repeat sodiums and avoid overcorrection (4) Acute respiratory failure: Qualifiers: Respiratory failure complication: hypoxia Qualified Code(s): J96.01 - Acute respiratory failure with hypoxia Code(s): J96.00 - Acute respiratory failure, unspecified whether with hypoxia or hypercapnia Status: Acute Assessment and Plan: due to a combination of altered mental status, AFib with RVR, sepsis, possible pneumonia on ventilator support weaning when more stable (5) Generalized weakness: Code(s): R53.1 - Weakness Status: Acute Assessment and Plan: 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 transplanted heart: [place] heart Qualified Code(s): I25.10 - Atherosclerotic heart disease of [place] coronary artery without angina pectoris Code(s): I25.10 - Atherosclerotic heart disease of [place] coronary artery without angina pectoris Status: Acute Assessment and Plan: continue aspirin and Brilinta hold statin due to myopathy hold beta-mirian and [place]-inhibitor due to shock repeat echo > 25 minutes was spent in review the patient's electronic medical record, previous records from his hospitalization at [facility], as well as discussion with the physician/nurses involved in his care as the patient. I will continue to follow patient with you while he remains hospitalized make further conditions during his hospital course Thank you for allowing me to participate in care this patient. History of Present Illness Reason for Consult Consult date: 10/25/22 Reason for consult: hyponatremia Chief Complaint Chief complaint: Hyponatremia History of Present Illness Narrative: All the information that I have obtained is from review of the electronic medical record as well as discussion with physicians and /nurses involved in the patient's care along with what I was informed by the ER physician yesterday evening. The patient is a 77-year-old male with a past medical history as outlined below who presented to [facility] Emergency Room yesterday with diffuse body aches all over his body for last several weeks. The patient was just recently hospitalized at [facility] in August of 2022 for what appears to be a cardiac event there required cardiac catheterization, stent placement, and aggressive medical
--- NOTE | 2022-10-25 16:48 | PC.NURSE ---
called with update that patient's condition is rapidly deteriorating. She stated to do nothing and she is on her way up to the unit.
--- NOTE | 2022-10-25 17:00 | PC.NURSE ---
1630 Patient's blood pressure significantly decreased, levo increased. 1645 Blood pressure continue to decrease, levo at max dose. called, per , do not to any more medications or CPR. Dr. Pierce called and aware. Dr. Mann called to confirm wishes with . on her way in. [address] Pierce called and updated. 170 Dr Castaneda updated.
--- NOTE | 2022-10-26 16:48 | PM.DDS ---
Discharge Summary Date and Time Date of : 10/25/22 Time of : 16:50 Provider Pronounced By: sury carson rn and christopher shaw rn Probable Cause of Probable Cause of : Respiratory failure Summary Hospital Course: Patient presented with weakness and body aches. Had a recent cardiac stent placed about a month ago and was on new medications for this. He was complaining shortness of breath. He was found to have leukopenia and hyponatremia[place] [address]. Patient was tachycardic. Initial EKG showed sinus tachycardia a subsequent EKG showed atrial fibrillation. He became hypotensive. Amiodarone was started. His condition deteriorated requiring intubation. Family initially was reluctant to proceed with intubation but agreed. Later that day patient's condition deteriorated and family wished for patient to be kept comfortable. Patient became bradycardic. No intervention was performed. Patient on 10/25/2022. Additional Data Confirmation of as documented by pronouncing clinician: Pupillary Reflex, Palpable Pulses, Response to Stimuli, Heart Tones and Breath Sounds Name of Provider Notified: dr. tomlinson, dr. casas, dr. logan Time Provider Notified: 16:50 Provider Requests Autopsy: No Family Requests Autopsy: No [employer] Driv[employer] Technician Notified: Yes Date [facility] Notified of : 10/25/22 Time [facility] Notified of : 16:59
[2022-10-27 22:33] LABS: Osmolality, Urine 414 mOsm/kg (50-1200)
== END 2022-10-25 16:50 | disposition expired | DRG 871 ==
LOC: ANHED 23:19 → ANHIMU 10-25 06:07 → ANHICU 10-25 13:08
PROVIDERS: Emergency Medicine; Internal Medicine; Admitting Provider Internal Medicine; Emergency Provider Emergency Medicine; PCP Student in an Organized Health Care Education/Training Program; Visit Provider Internal Medicine
DX: A41.9 Sepsis, unspecified organism (principal); G93.41 Metabolic encephalopathy; J18.9 Pneumonia, unspecified organism; J96.00 Acute respiratory failure, unspecified whether with hypoxia or hypercapnia; R65.21 Severe sepsis with septic shock; N17.0 Acute kidney failure with tubular necrosis; E87.1 Hypo-osmolality and hyponatremia; G72.0 Drug-induced myopathy; T50.995A Adverse effect of other drugs, medicaments and biological substances, initial encounter; Z20.822 Contact with and (suspected) exposure to COVID-19; I48.91 Unspecified atrial fibrillation; I25.10 Atherosclerotic heart disease of native coronary artery without angina pectoris; E78.5 Hyperlipidemia, unspecified; Z96.612 Presence of left artificial shoulder joint; E86.0 Dehydration; I25.2 Old myocardial infarction; Z95.5 Presence of coronary angioplasty implant and graft; Z87.891 Personal history of nicotine dependence
CPT/HCPCS: 36415; 36600; 70496; 70498; 71045; 71250; 71275; 74176; 80048; 80053; 81001; 82375; 82550; 82570; 82805; 82948; 83050; 83605; 83735; 83880; 83930; 83935; 84145; 84295; 84300; 84443; 84484; 85025; 85610; 85730; 87040; 87147; 87181; 87186; 87636; 93005; 93306; 94002; 96361; 96375; 99285; A9270; C1751; C9113; G0378; J0171; J0282; J0456; J0461; J0696; J1720; J2250; J7030; J7120; Q9967